=== PATIENT | female | born 1995 | race Caucasian/White ===

== ENCOUNTER 2024-10-21 21:40 | Emergency (ER) | payer OTHER, SELFPAY ==
[2024-10-21 21:41] VITALS: BP 152/80; PULSE 98; RESP 18; TEMP 37.1; O2SAT 97; BMI 33.2
[2024-10-21 21:45] VITALS: BP 152/80; PULSE 101; O2SAT 99
[2024-10-21 22:01] VITALS: BP 125/71; PULSE 83; O2SAT 98
--- NOTE | 2024-10-21 22:18 | CT_ITS ---
PROCEDURE INFORMATION: Exam: CT Abdomen And Pelvis With Contrast Exam date and time: 10/21/2024 11:12 PM Age: 29 years old Clinical indication: Abdominal pain; Additional info: 3 wks post op arlyn, fever luq/llq abd pain TECHNIQUE: Imaging protocol: Computed tomography of the abdomen and pelvis with contrast. Radiation optimization: All CT scans at this facility use at least one of these dose optimization techniques: automated exposure control; mA and/or kV adjustment per patient size (includes targeted exams where dose is matched to clinical indication); or iterative reconstruction. Contrast material: ISOVUE; Contrast volume: 75 ml; Contrast route: IV; COMPARISON: No relevant prior studies available. FINDINGS: Lungs: Mass-like dense airspace consolidation in the medio-basal segment of the right lower lobe concerning for pneumonia. Liver: Unremarkable. Gallbladder and biliary ducts: Status post cholecystectomy. No intra- or extra-hepatic biliary ductal dilatation. Pancreas: No evidence of acute pancreatitis. No pancreatic ductal dilation. Spleen: Unremarkable. Adrenal glands: Unremarkable. Kidneys and ureters: No renal or ureteral stones. No hydronephrosis. Stomach and bowel: No bowel wall thickening to suggest infectious/inflammatory process. No small bowel dilation to suggest high-grade obstruction. Appendix: Appendix is visualized and is normal. Intraperitoneal space: No free fluid. No pneumoperitoneum. Vasculature: Unremarkable. Lymph nodes: Unremarkable. Urinary bladder: Bladder is decompressed, limiting evaluation. Reproductive: CT appearance of reproductive organs is within normal limits for age. Physiologic corpus luteum incidentally noted in the right ovary. Bones/joints: No evidence of acute osseous abnormality. Soft tissues: Unremarkable. IMPRESSION: 1. No evidence of acute intra-abdominal pathology. 2. Mass-like dense airspace consolidation in the medio-basal segment of the right lower lobe concerning for pneumonia. Follow up imaging to ensure resolution is warranted. 3. Status post cholecystectomy with no evidence of intra-abdominal post-operative complication.
[2024-10-21 22:40] LABS: Albumin Level 4.9 g/dl (3.5-5.0); Chloride 103 mmol/L (98-107); Sodium 137 mmol/L (136-145)
[2024-10-21 22:41] LABS: Potassium 3.8 mmoL/L (3.5-5.1)
[2024-10-21] MEDS: 0.9 % SODIUM CHLORIDE 1000ML 1,000 ML 999 ML IV (22:42)
[2024-10-21 22:43] LABS: Alanine Aminotransferase 53 U/L (12-78); Albumin/Globulin Ratio 1.5 (1.1-1.8); Alkaline Phosphatase 92 U/L (38-126); Anion Gap 13.8 mEq/L (5-15); Aspartate Amino Transferase 39 U/L (14-36); Bilirubin,Total 1.2 mg/dl (0.2-1.3); Blood Urea Nitrogen 14 mg/dl (7-17); Carbon Dioxide 24 mmol/L (22.0-30.0); Creatinine Clearance Estimated 125 mL/min (50-200); Estimated Glomerular Filt Rate 84 ml/min (>60); GFR (African American) 102 ML/MIN (>60); Globulin 3.3 g/dL (1.3-3.2); Lipase 68 U/L (23-300); Total Protein,Serum 8.2 g/dl (6.3-8.2)
[2024-10-21 22:44] LABS: Calcium 9.2 mg/dl (8.4-10.2); Glucose 96 mg/dl (74-100); Lactic Acid 1.2 mmol/L (0.7-2.1)
[2024-10-21] MEDS: ACETAMINOPHEN 1,000MG/100ML VIAL 1000 MG IV (22:47)
[2024-10-21 22:49] LABS: Basophils # 0.1 K/mm3 (0-0.2); Basophils % 0.9 % (0.1-2.0); Eosinophils # 0.1 K/mm3 (0.0-0.4); Eosinophils % 1.1 % (0.1-12.0); Hematocrit 38.7 % (37.0-47.0); Hemoglobin 12.9 g/dL (12.2-16.2); Lymphocytes # 1.2 K/mm3 (0.7-4.5); Lymphocytes % 16.6 % (10-50); Mean Corpuscular HGB Conc 33.3 g/dL (31.8-35.4); Mean Corpuscular Hemoglobin 30.1 pg (27.0-31.2); Mean Corpuscular Volume 90.6 fl (81-99); Mean Platelet Volume 7.3 fl (7.4-10.4); Monocytes # 0.4 K/mm3 (0.1-1.0); Monocytes % 6.4 % (1.7-9.3); Neutrophils # 5.2 K/mm3 (1.8-7.8); Neutrophils % 74.9 % (37.0-80.0); Platelet Count 178 K/mm3 (142-424); Red Blood Count 4.28 M/mm3 (4.20-5.40); Red Cell Distribution Width 14.4 % (11.5-17.5); White Blood Count 6.9 K/mm3 (4.8-10.8)
[2024-10-21 22:50] LABS: Microscopic, Urine URINE MICROSCOPIC (MICROSCOPIC)
--- NOTE | 2024-10-21 22:50 | ED_ITS ---
Discharge Plan Disposition Patient Disposition: Home, Self-Care Prescriptions Prescriptions: New amoxicillin-pot clavulanate 875-125 mg tablet 1 tab PO BID Qty: 14 0RF Referrals Follow up/Referrals: Mellisa Austin [Primary Care Provider] - See instructions Activity Restrictions/Add. Instructions Additional Instructions/Restrictions: You were evaluated in the ER and are appropriate for discharge at this time. Take the prescribed antibiotics as directed, do not skip doses, do not stop taking them early. This antibiotic may give you diarrhea, eat yogurt or take a probiotic to help avoid the side effect. Take Tylenol, ibuprofen if needed for pain, do not exceed the recommended dose on the bottle. Drink a glass of water and eat a small snack each time you take these medications to avoid side effects. Make an appointment with your primary care doctor for reevaluation in a few days, return to the ER with new, worsening, or otherwise concerning symptoms. Clinical Impressions Clinical Impression: Abdominal pain, LUQ, Fever, Post-op pain Pneumonia Qualifiers: Pneumonia type: due to unspecified organism Laterality: right Lung location: l ower lobe of lung Qualified Code(s): J18.9 - Pneumonia, unspecified organism Print Language Print Language: Japanese Discharge ED Provider: Lise Gaona General Adult HPI <Lise Gaona MD - Last Filed: 10/21/24 22:54> General Chief complaint: PAIN Stated complaint: surg stitch painful Time Seen by Provider: 10/21/24 22:09 Mode of Arrival: Ambulatory Source of Information: Patient Limitations: No Limitations Description of Symptoms (Recalled from ER Triage Doc. by RN): Patient presents to ED with abd pain in her upper left quadrant. Patient reports gallbladder removal on Sep 28. Patient reports her incision site was infected and she was started on Bactrium 2 weeks ago, pt states she did not finish her antibiotic. History of Present Illness HPI narrative: Patient is a 29-year-old female presenting today with fever and left-sided abdominal pain. She is 3 weeks status post cholecystectomy on September 28. 1 week after her surgery she began having discomfort in the left upper quadrant where her surgical incision was she went to an outside hospital where her external exam was normal and she had a fever at that time they told her it was most likely an infection they started her on Bactrim and she had improvement in her symptoms for a few days. However this has persistently worsened. Over the last 3 days she has had a fever of 101 each day she has been taking antipyretic medications including after today. She also has had a cough for a few days. She went to an urgent treatment clinic earlier today where nothing was done . Other than the left upper and left lower quadrant abdominal pain and the fever and a slight cough she denies any other significant medical symptoms including hematuria dysuria urgency frequency vaginal bleeding vaginal discharge constipation diarrhea etc. Related Data Previous Rx's ?Medication ?Instructions ?Recorded amoxicillin 875 mg-potassium 1 tab PO BID #14 tabs 10/22/24 clavulanate 125 mg tablet Allergies Allergy/AdvReac Type Severity Reaction Status Date / Time phenazopyridine (From Allergy Rash Verified 10/21/24 22:40 Pyridium) [facility] <Lise Gaona MD - Last Filed: 10/21/24 22:54> [facility] Disclaimer: The information contained in this section may have been updated after the patient was seen, as this information can be updated by other users. Social History (Updated 10/21/24 @ 22:54 by Lise Gaona MD) Smoking Status: Never smoker alcohol intake: never current occupational status: other Travel in the last 8 weeks: None <Lise Gaona MD - Last Filed: 10/21/24 22:54> ROS Obtained: Yes All systems reviewed & no additional complaints except as documented Physical Exam <Lise Gaona MD - Last Filed: 10/21/24 22:54> General General appearance: alert and in no apparent distress Respiratory Respiratory exam: Present normal lung sounds bilaterally and respiratory distress Cardiovascular Cardiovascular exam: Present regular rate; Absent normal rhythm or bradycardia Abdominal Exam Abdominal exam: Present soft, distention and tenderness (Patient has left upper quadrant left lower quadrant tenderness palpation) Neurological Exam Neurological exam: Present alert and oriented X3 Medical Decision Making <Lise Gaona MD - Last Filed: 10/21/24 22:54> Medical Records Screening: Per USPSTF and CDC recommendations, given the prevalence of disease in our region, it is our hospital?s policy to screen for HIV and viral Hepatitis for all patients aged 18 and over and those with ongoing risk factors. Stefan Inquiry Pt receiving controlled substance: No Vital Signs: 10/21/24 21:41 10/21/24 21:45 10/21/24 22:01 Temperature 98.7 F Temperature Source Temporal Artery Scan Pulse Rate 101 H 83 Pulse Rate [Right Brachial] 98 H Respiratory Rate 18 Blood Pressure 152/80 H 125/71 Blood Pressure [Right Arm] 152/80 H Blood Pressure Mean [Right Arm] 104 Blood Pressure Source [Right Arm] Automatic Cuff Blood Pressure Position [Right Arm] Sitting 02 Sat by Pulse Oximetry 97 99 98 Oxygen Delivery Method Room Air Lab Data Lab Results 10/21/24 22:25: WBC 6.9, RBC 4.28, Hgb 12.9, Hct 38.7, MCV 90.6, MCH 30.1, MCHC 33.3, RDW 14.4, Plt Count 178, MPV 7.3 L, Neut % (Auto) 74.9, Lymph % (Auto) 16.6, [place] % (Auto) 6.4, Eos % (Auto) 1.1, Baso % (Auto) 0.9, Neut # (Auto) 5.2, Lymph # (Auto) 1.2, [place] # (Auto) 0.4, Eos # (Auto) 0.1, Baso # (Auto) 0.1, Sodium 137, Potassium 3.8, Chloride 103, Carbon Dioxide 24, Anion Gap 13.8, BUN 14, Creatinine 0.80, Estimated Creat Clear 125, Estimated GFR 84, Est GFR ( Amer) 102, Glucose 96, Lactate 1.2, Calcium 9.2, Total Bilirubin 1.2, A ST 39 H, ALT 53, Alkaline Phosphatase 92, Total Protein 8.2, Albumin 4.9, G lobulin 3.3 H, Albumin/Globulin Ratio 1.5, Lipase 68, Serum HCG, Qual Negative, Urine Color Yellow, Urine Appearance Clear, Urine pH 7.5, Ur Specific Gilliam 1.010, Urine Protein Negative, Urine Glucose (UA) Negative, Urine Ketones Negative, Urine Blood Negative, Urine Nitrate Negative, Urine Bilirubin Negative, Urine Urobilinogen 0.2, Ur Leukocyte Esterase Negative 10/21/24 23:07: SARS-CoV-2 (PCR) Not detected, Influenza A Untype (PCR) Not detected, Influenza Type B (PCR) Not detected 10/21/24 22:25 10/21/24 22:25 Orders (Tests/Meds): ED MEDICATIONS Generic Name Dose Route Start Last Admin Trade Name Freq PRN Reason Stop Dose Admin Sodium Chloride 10 ml 10/21/24 23:18 10/21/24 23:19 Sodium Chloride 0.9% 10ml Syr (Rad Only) IV 11/20/24 23:17 10 ml NEEDED PRN Administration Maintain IV Site Discontinued Medications Generic Name Dose Route Start Last Admin Trade Name Freq PRN Reason Stop Dose Admin Acetaminophen 1,000 mg 10/21/24 22:18 10/21/24 22:47 Acetaminophen 1,000mg/100ml Vial IV 10/21/24 22:19 1,000 mg ONCE ONE Administration Amoxicillin/Clavulanate Potassium 1 each 10/22/24 00:21 10/22/24 00:32 Amoxicillin/Clavulanate Potassium 875/125mg Tablet PO 10/22/24 00:22 1 each ONCE ONE Administration Sodium Chloride 1,000 mls @ 999 mls/hr 10/21/24 22:30 10/21/24 22:42 Sod Chlor 0.9% 1000ml Bag IV 10/21/24 23:30 999 mls/hr .Q1H1M VITALY Administration Iopamidol 75 ml 10/21/24 23:18 10/21/24 23:19 Iopamidol-370 (76%);100ml Bottle IV 10/21/24 23:19 75 ml ONCE ONE Administration ORDERS Category Date Time Status CT abdomen pelvis w con Stat Cat Scan 10/21/24 22:18 Completed CBC w/Auto Diff [Complete Blood Count Auto Diff] Stat Lab 10/21/24 22:25 Completed CMP [Comprehensive Metabolic Panel] Stat Lab 10/21/24 22:25 Completed HCG Qualitative, Serum Stat Lab 10/21/24 22:25 Completed Lactic Acid Stat Lab 10/21/24 22:25 Completed Lipase Stat Lab 10/21/24 22:25 Completed Rapid PCR Covid and Flu A/B Stat Lab 10/21/24 23:07 Completed UA [Urinalysis and Microscopic] Stat Lab 10/21/24 22:25 Results Blood Culture Stat Micro 10/21/24 22:25 Received Medical Decision Narrative: Well-appearing 29-year-old female with 3 days of fever to 101 who is 3 weeks postoperative from a recent cholecystectomy differential includes intra- abdominal infection such as an abscess pneumonia pulmonary embolism urinary tract infection diverticulitis etc. Will get a contrasted CT scan for further evaluation and management. Cultures urinalysis blood work have been obtained we will we will see the lower aspect of her lungs on the CT scan of her abdomen. IV fluids and Tylenol have been administered will reassess. Care will be transitioned to Dr. Linda Jimenez at 11 PM for further evaluation and management. <Miki Jimenez MD - Last Filed: 10/22/24 00:36> Vital Signs: 10/21/24 21:41 10/21/24 21:45 10/21/24 22:01 Temperature 98.7 F Temperature Source Temporal Artery Scan Pulse Rate 101 H 83 Pulse Rate [Right Brachial] 98 H Respiratory Rate 18 Blood Pressure 152/80 H 125/71 Blood Pressure [Right Arm] 152/80 H Blood Pressure Mean [Right Arm] 104 Blood Pressure Source [Right Arm] Automatic Cuff Blood Pressure Position [Right Arm] Sitting 02 Sat by Pulse Oximetry 97 99 98 Oxygen Delivery Method Room Air Lab Data Lab Results 10/21/24 22:25: WBC 6.9, RBC 4.28, Hgb 12.9, Hct 38.7, MCV 90.6, MCH 30.1, MCHC 33.3, RDW 14.4, Plt Count 178, MPV 7.3 L, Neut % (Auto) 74.9, Lymph % (Auto) 16.6, [place] % (Auto) 6.4, Eos % (Auto) 1.1, Baso % (Auto) 0.9, Neut # (Auto) 5.2, Lymph # (Auto) 1.2, [place] # (Auto) 0.4, Eos # (Auto) 0.1, Baso # (Auto) 0.1, Sodium 137, Potassium 3.8, Chloride 103, Carbon Dioxide 24, Anion Gap 13.8, BUN 14, Creatinine 0.80, Estimated Creat Clear 125, Estimated GFR 84, Est GFR ( Amer) 102, Glucose 96, Lactate 1.2, Calcium 9.2, Total Bilirubin 1.2, A ST 39 H, ALT 53, Alkaline Phosphatase 92, Total Protein 8.2, Albumin 4.9, G lobulin 3.3 H, Albumin/Globulin Ratio 1.5, Lipase 68, Serum HCG, Qual Negative, Urine Color Yellow, Urine Appearance Clear, Urine pH 7.5, Ur Specific [place] 1.010, Urine Protein Negative, Urine Glucose (UA) Negative, Urine Ketones Negative, Urine Blood Negative, Urine Nitrate Negative, Urine Bilirubin Negative, Urine Urobilinogen 0.2, Ur Leukocyte Esterase Negative 10/21/24 23:07: SARS-CoV-2 (PCR) Not detected, Influenza A Untype (PCR) Not detected, Influenza Type B (PCR) Not detected Orders (Tests/Meds): ED MEDICATIONS Generic Name Dose Route Start Last Admin Trade Name Freq PRN Reason Stop Dose Admin Sodium Chloride 10 ml 10/21/24 23:18 10/21/24 23:19 Sodium Chloride 0.9% 10ml Syr (Rad Only) IV 11/20/24 23:17 10 ml NEEDED PRN Administration Maintain IV Site Discontinued Medications Generic Name Dose Route Start Last Admin Trade Name Freq PRN Reason Stop Dose Admin Acetaminophen 1,000 mg 10/21/24 22:18 10/21/24 22:47 Acetaminophen 1,000mg/100ml Vial IV 10/21/24 22:19 1,000 mg ONCE ONE Administration Amoxicillin/Clavulanate Potassium 1 each 10/22/24 00:21 10/22/24 00:32 Amoxicillin/Clavulanate Potassium 875/125mg Tablet PO 10/22/24 00:22 1 each ONCE ONE Administration Sodium Chloride 1,000 mls @ 999 mls/hr 10/21/24 22:30 10/21/24 22:42 Sod Chlor 0.9% 1000ml Bag IV 10/21/24 23:30 999 mls/hr .Q1H1M VITALY Administration Iopamidol 75 ml 10/21/24 23:18 10/21/24 23:19 Iopamidol-370 (76%);100ml Bottle IV 10/21/24 23:19 75 ml ONCE ONE Administration ORDERS Category Date Time Status CT abdomen pelvis w con Stat Cat Scan 10/21/24 22:18 Completed CBC w/Auto Diff [Complete Blood Count Auto Diff] Stat Lab 10/21/24 22:25 Completed CMP [Comprehensive Metabolic Panel] Stat Lab 10/21/24 22:25 Completed HCG Qualitative, Serum Stat Lab 10/21/24 22:25 Completed Lactic Acid Stat Lab 10/21/24 22:25 Completed Lipase Stat Lab 10/21/24 22:25 Completed Rapid PCR Covid and Flu A/B Stat Lab 10/21/24 23:07 Completed UA [Urinalysis and Microscopic] Stat Lab 12/05/24 22:25 Results Blood Culture Stat Micro 10/21/24 22:25 Received Medical Decision Narrative: Well-appearing 29-year-old female with 3 days of fever to 101 who is 3 weeks postoperative from a recent cholecystectomy differential includes intra- abdominal infection such as an abscess pneumonia pulmonary embolism urinary tract infection diverticulitis etc. Will get a contrasted CT scan for further evaluation and management. Cultures urinalysis blood work have been obtained we will we will see the lower aspect of her lungs on the CT scan of her abdomen. IV fluids and Tylenol have been administered will reassess. Care will be transitioned to Dr. Linda Jimenez at 11 PM for further evaluation and management. Jimenez: Upon my assumption of care patient is stable, resting comfortably, she states she is pain-free at this time. I agree with the assessment and plan from Dr. Gaona. I reviewed labs which are reassuring and nonactionable. CT abdomen pelvis personally interpreted demonstrates findings in the medial aspect of the right lower lobe concerning for pneumonia, with patient's recent intubation for surgery, it is possible this is an aspiration pneumonia versus community- acquired pneumonia. Intra-abdominal imaging does not demonstrate any acute abnormalities. See radiology read for final interpretation. On reassessment patient continues to be stable and pain-free, I explained the findings to her. We talked about how patient's left upper quadrant pain could be related to having pneumonia in the right medial lower lobe with the possibility of referred pain, or other etiologies of her abdominal pain. She received a dose of Augmentin for coverage of CAP and possible aspiration. I prescribed Augmentin as well. Patient was given instructions on medication administration, symptomatic management, follow up instructions, and return precautions for the emergency department. Patient indicated understanding and was discharged in stable condition. Critical Care <Lise Gaona MD - Last Filed: 10/21/24 22:54> Critical Care Time Critical Care Time: No
[2024-10-21 23:04] LABS: HCG Qualitative, Serum Negative (Negative)
[2024-10-21 23:12] LABS: Appearance,Urine CLEAR (Clear); Bilirubin,Urine Negative (Negative); Blood, Urine Negative (Negative); Color,Urine YELLOW (Yellow); Glucose,Urine (UA) Negative (Negative); Ketones,Urine Negative (Negative); Leukocyte Esterase,Urine Negative (Negative); Nitrate,Urine Negative (Negative); PH,Urine 7.5 (5.0-8.5); Protein,Urine Negative (Negative); Urobilinogen,Urine 0.2 EU/dl (0.2)
[2024-10-21 23:16] LABS: Coronavirus 19, PCR Not Detected (NotDetected); Influenza A, PCR Not Detected (NotDetected); Influenza B, PCR Not Detected (NotDetected)
[2024-10-21] MEDS: SODIUM CHLORIDE 0.9% 10ML SYR (RAD ONLY) 10 ML IV (23:19)
[2024-10-21] MEDS: IOPAMIDOL-370 (76%);100ML BOTTLE 75 ML IV (23:19)
[2024-10-22] MEDS: AMOXICILLIN/CLAVULANATE POTASSIUM 875/125MG TABLET 1 EACH PO (00:32)
[2024-10-22 00:34] VITALS: BP 125/71; PULSE 80; RESP 16; TEMP 36.8; O2SAT 98
[2024-10-22 01:08] LABS: Bacteria,Urine Trace /lpf
== END 2024-10-22 00:39 | disposition home or self-care (01) ==
PROVIDERS: Emergency Provider Student in an Organized Health Care Education/Training Program; PCP Nurse Practitioner Pediatrics
DX: J18.9 Pneumonia, unspecified organism (principal); G89.18 Other acute postprocedural pain; R10.12 Left upper quadrant pain; R10.32 Left lower quadrant pain; R50.9 Fever, unspecified; R05.9 Cough, unspecified
CPT/HCPCS: 74177; 80053; 81001; 83605; 83690; 84703; 85025; 87040; 87636; 96361; 96374; 99285; J0131; J7030; Q9967

== ENCOUNTER 2024-11-24 10:56 | Emergency (ER) | payer OTHER, SELFPAY ==
[2024-11-24 10:57] VITALS: BP 167/90; PULSE 104; RESP 16; TEMP 36.9; O2SAT 100; BMI 33.2
--- NOTE | 2024-11-24 11:02 | [facility].EDGENADL ---
Discharge Plan Disposition Patient Disposition: Home, Self-Care Condition: Good Prescriptions Prescriptions: No Action amoxicillin-pot clavulanate 875-125 mg tablet 1 tab PO BID Qty: 14 0RF Referrals Follow up/Referrals: Mellisa Austin [Primary Care Provider] - See instructions Activity Restrictions/Add. Instructions Additional Instructions/Restrictions: Follow-up with your primary care provider next 3 days. It is advised that you apply heat to the area, alternate Tylenol and ibuprofen every 3 hours. You declined muscle relaxers and lidocaine patches. Clinical Impressions Clinical Impression: Acute strain of neck muscle Qualifiers: Encounter type: initial encounter Qualified Code(s): S16.1XXA - Strain of muscle, fascia and tendon at neck level, initial encounter Instructions Patient Instructions: Muscle Strain, DI for Cervical Muscle Strain Print Language Print Language: Mongolian Discharge ED Provider: Sandra Hilton General Adult HPI General Chief complaint: PAIN Stated complaint: numbness/tingling rt arm, hurts to turn head Time Seen by Provider: 11/24/24 10:58 History of Present Illness HPI narrative: Patient is a 29-year-old female presenting with neck pain. Patient states she woke up with right-sided neck and upper back pain 3 days ago and states that has not improved. Patient woke up today with tingling down her right arm. Patient denies numbness or weakness, trauma, significant medical problems or history of blood clots. Patient denies headache or blurred vision. Patient denies taking medication for symptom relief. Related Data Previous Rx's ?Medication ?Instructions ?Recorded amoxicillin 875 mg-potassium 1 tab PO BID #14 tabs 10/22/24 clavulanate 125 mg tablet Allergies Allergy/AdvReac Type Severity Reaction Status Date / Time phenazopyridine (From Allergy Rash Verified 10/21/24 22:40 Pyridium) [facility] Disclaimer: The information contained in this section may have been updated after the patient was seen, as this information can be updated by other users. Social History (Updated 10/21/24 @ 22:54 by Lise Gaona MD) Smoking Status: Never smoker alcohol intake: never current occupational status: other Travel in the last 8 weeks: None Have you lived/traveled outside [place] in past 30 days?: No Contact w/someone who lives/traveled outside [place] past 30 days?: No Exposure to someone with infectious disease in past 14 days?: No Do you have a fever (greater than 100.4 F or 38 C)?: No Have you tested positive for COVID-19: No Exposed to someone with COVID-19 in past 14 days?: No Do you have a sore throat?: No Do you have a cough?: No Do you have any weakness?: No Do you have any diarrhea?: No Are you experiencing any unusual bleeding?: No Do you have any muscle aches/pain?: No Do you have any abdominal pain?: No Are you experiencing loss of taste or smell?: No ROS Obtained: Yes All systems reviewed & no additional complaints except as documented Physical Exam General General appearance: alert and in no apparent distress Head Head exam: atraumatic, normocephalic and normal inspection Eye Eye exam: Present normal appearance, PERRL and EOMI ENT ENT exam: Present normal exam, normal oropharynx, mucous membranes moist and normal external ear exam Neck Neck exam: Present normal inspection, full ROM, trachea midline and tenderness (R>L paraspinal tenderness, right trap tenderness. Neck ROM full with increased tenderness of right trap with right head turn. ); Absent meningismus or lymphadenopathy Respiratory Respiratory exam: Present normal lung sounds bilaterally; Absent respiratory distress Cardiovascular Cardiovascular exam: Present regular rate and normal rhythm; Absent JVD Extremities Exam Extremities exam: Present normal inspection and full ROM; Absent tenderness or joint swelling Back Exam Back exam: Present normal inspection; Absent tenderness Neurological Exam Neurological exam: Present alert, oriented X3 and CN II-XII intact; Absent motor sensory deficit Medical Decision Making Medical Records Medical records reviewed: Yes I reviewed the patient's medical records. Screening: Per USPSTF and CDC recommendations, given the prevalence of disease in our region, it is our hospital?s policy to screen for HIV and viral Hepatitis for all patients aged 18 and over and those with ongoing risk factors. Stefan Inquiry Pt receiving controlled substance: No Stefan was queried for this patient: No Vital Signs: 11/24/24 10:57 11/24/24 11:05 11/24/24 11:45 Temperature 98.4 F Temperature Source Oral Pulse Rate 108 H 74 Pulse Rate [Radial] 104 H Respiratory Rate 16 Blood Pressure 167/90 H Blood Pressure [Right Arm] 167/90 H Blood Pressure Mean [Right Arm] 115 Blood Pressure Source [Right Arm] Automatic Cuff Blood Pressure Position [Right Arm] Sitting 02 Sat by Pulse Oximetry 100 100 99 Oxygen Delivery Method Room Air Room Air 11/24/24 12:00 Temperature Temperature Source Pulse Rate 78 Pulse Rate [Radial] Respiratory Rate Blood Pressure 132/82 Blood Pressure [Right Arm] Blood Pressure Mean [Right Arm] Blood Pressure Source [Right Arm] Blood Pressure Position [Right Arm] 02 Sat by Pulse Oximetry 99 Oxygen Delivery Method Room Air Orders (Tests/Meds): ED MEDICATIONS Discontinued Medications Generic Name Dose Route Start Last Admin Trade Name Kenzie PRN Reason Stop Dose Admin Acetaminophen 1,000 mg 11/24/24 11:13 11/24/24 11:20 Acetaminophen 500mg Tab PO 11/24/24 11:14 1,000 mg ONCE ONE Administration Ibuprofen 800 mg 11/24/24 11:14 11/24/24 11:20 Ibuprofen 800 Mg Tablet PO 11/24/24 11:15 800 mg ONCE ONE Administration Lidocaine 1 each 11/24/24 11:13 11/24/24 11:20 Lidocaine 5% Transdermal Patch TP 11/24/24 11:14 1 each ONCE ONE Administration Methocarbamol 1,000 mg 11/24/24 11:15 11/24/24 11:20 Methocarbamol 500mg Tablet PO 11/24/24 11:16 1,000 mg ONCE ONE Administration Medical Decision Narrative: In summary, patient is a 29-year-old female presenting with right-sided neck pain. Differential diagnosis includes but is not limited to, cervical strain, trapezius muscular strain, radiculopathy, cervical spine fracture/malalignment. Patient has no neurologic deficits and is demonstrating full range of motion of her upper extremities and neck, albeit with slight pain. Given these exam findings, patient will be medically managed with Tylenol, ibuprofen, Robaxin, lidocaine patch and reassessed. On reassessment, patient states she continues to have the pain. I explained that this kind of pain requires multiple rounds of medication as well as heat packs. Patient is insistent that she did not sleep wrong and does not know why this is happening. The medications the patient received in the ER were the first medication she has taken for this pain. I informed her of that the lack of neurologic deficits gives low concern for emergent causes of her symptoms. Patient was offered prescription for Robaxin as well as lidocaine patches to which she declined and stated she would go somewhere else for treatment. Patient was discharged in stable condition. Sandra Hilton MD PGY-3, Emergency Medicine Critical Care Critical Care Time Critical Care Time: No
[2024-11-24 11:05] VITALS: BP 167/90; PULSE 108; O2SAT 100
--- NOTE | 2024-11-24 11:13 | PC.NURSE ---
dr perry at bedside
[2024-11-24] MEDS: METHOCARBAMOL 500MG TABLET 1000 MG PO (11:20)
[2024-11-24] MEDS: LIDOCAINE 5% TRANSDERMAL PATCH 1 EACH TP (11:20)
[2024-11-24] MEDS: IBUPROFEN 800 MG TABLET PO (11:20)
[2024-11-24] MEDS: ACETAMINOPHEN 500MG TAB 1000 MG PO (11:20)
[2024-11-24 11:45] VITALS: PULSE 74; O2SAT 99
[2024-11-24 12:00] VITALS: BP 132/82; PULSE 78; O2SAT 99
--- NOTE | 2024-11-24 12:49 | PC.NURSE ---
ROUNDED ON PT, TEXTING ON PHONE. STATES NOT MUCH BETTER AFTER MEDS. CALL LIGHT WITHIN REACH
[2024-11-24 12:59] VITALS: BP 115/74; PULSE 70; RESP 16; TEMP 36.7; O2SAT 99
== END 2024-11-24 13:01 | disposition home or self-care (01) ==
PROVIDERS: Emergency Provider Student in an Organized Health Care Education/Training Program; PCP Nurse Practitioner Pediatrics
DX: S16.1XXA Strain of muscle, fascia and tendon at neck level, initial encounter (principal); M54.2 Cervicalgia; M54.9 Dorsalgia, unspecified; R20.2 Paresthesia of skin
CPT/HCPCS: 99283